=== PATIENT | male | born 1985 ===

== ENCOUNTER 2025-06-26 22:03 | Emergency (ER) | payer OTHER, SELFPAY ==
--- NOTE | ~2025-06-26 | XR_ITS ---
CLINICAL HISTORY: hypoxic 1 view chest x-ray Comparison: None provided Findings: Mild pulmonary vascular congestion. No consolidation, large effusion, or pneumothorax. Heart size is normal. No acute fracture. IMPRESSION: 1. Mild pulmonary vascular congestion. 2. No other acute cardiopulmonary findings. This document has been electronically signed by: Christiano Morgan MD on 06/26/2025 23:33:41
[2025-06-26 22:14] VITALS: BP 105/70; PULSE 98; RESP 14; TEMP 36.8; O2SAT 100; O2SAT 99; BMI 22.5
--- NOTE | 2025-06-26 22:25 | ECG_ITS ---
Test Reason : LETHARGIC Blood Pressure : */* mmHG Vent. Rate : 100 BPM Atrial Rate : 100 BPM P-R Int : 140 ms QRS Dur : 94 ms QT Int : 364 ms P-R-T Axes : 56 47 36 degrees QTcB Int : 469 ms Normal sinus rhythm Possible Left atrial enlargement Minimal voltage criteria for LVH, may be normal variant ( Sokolow-Das ) Borderline ECG No previous ECGs available Referred By: Generic ED Physician Electronically Signed By: MINESH AYALA
--- NOTE | 2025-06-26 22:37 | ED.GENADULT ---
HPI - General Adult General Chief complaint: General Medical Stated complaint: LOW O2 Time Seen by Provider: 06/26/25 22:29 Source: patient and EMS Mode of arrival: EMS Limitations: other ( somnolent ) History of Present Illness ED Provider: Dr. Katie Salas HPI narrative: patient comes to the emergency room via ambulance from [facility]. According to the staff, patient has been lethargic, the staff reports a low O2 sat in the 70s on room air, pinpoint pupils. Patient was put on 4 L nasal cannula his oxygen improved to 100%. According to the patient, he does not taking narcotics. However, patient is very somnolent to have a full conversation, keeps falling asleep. Related Data Allergies Allergy/AdvReac Type Severity Reaction Status Date / Time chlorpromazine (From Allergy Vomiting Verified 06/26/25 22:23 Thorazine) haloperidol (From Haldol) Allergy Vomiting Verified 06/26/25 22:23 Review of Systems Review of Systems: Yes Other ( Too somnolent, keeps falling asleep) [facility] Social History Social History Advance Directives: Yes Advance Directives Information Provided: Yes Advance Directives on File: No Physical Exam ED Exam Exam: Appearance: Alert. no acute distress, awake but falls asleep talking. Eyes: Pupils equal, round and reactive to light. Patient no longer has pinpoint pupils as described per paramedics ENT: Pharynx normal. Neck: Normal inspection. Neck supple. No lymph nodes noted. No crepitus CVS: Normal heart rate and rhythm. Pulses normal. Normal S1 and S2 Respiratory: No respiratory distress. Breath sounds normal. No Wheezing. No rales Abdomen: Soft and nontender. No rigidity. No distention. Skin: Skin warm and dry. Normal skin color. Normal skin turgor. Extremities: No lower extremity edema. No Lacerations. No Rash Neuro: moves all extremities, normal speech, however, patient does fall asleep talking Psych: calm, cooperative , very somnolent Vital Signs: Vital Signs - 24 hr 06/26/25 22:14 06/27/25 00:26 06/27/25 02:31 Temperature 98.2 F Pulse Rate 98 88 86 Respiratory Rate 14 13 16 Blood Pressure 105/70 108/71 96/60 Pulse Oximetry 99 95 95 Oxygen Delivery Method Nasal Cannula Nasal Cannula Room Air Oxygen Flow Rate 2 06/27/25 06:00 Temperature Pulse Rate 82 Respiratory Rate 9 L Blood Pressure 94/57 L Pulse Oximetry 94 Oxygen Delivery Method Room Air Oxygen Flow Rate BMI result Body Mass Index 22.5 Course Course Course Narrative: it is possible the patient may have gotten narcotics versus his psychiatric medications that are making him drowsy. All of patient's labs and imaging pending. Patient arrived on nasal cannula. The cannula was removed, patient now on room air, patient's saturation 98% Medical Decision Making Medical Decision Making [facility] Narrative: My interpretation of EKG: Normal sinus rhythm, heart rate 100, no ST segment depression or elevation, no T-wave inversion, QTC 469 my interpretation of labs: Patient's white blood cell count 11.2, likely reactive leukocytosis, no source or signs of infection, no significant abnormality in patient's chemistry, LFTs AST/ ALT slightly bumped, no abdominal pain. Toxicology negative for EtOH, positive for methadone. Patient takes multiple medications that make him feel sleepy such as clonidine, hydroxyzine, melatonin gabapentin, olanzapine, methadone, diazepam. It is likely that patient is gives a being on high dose of this medications and therefore patient is somnolent. Patient awake, alert, was able to walk to the bathroom a provide a urine sample. Denies any pain, denies SI or HI when patient's sleeps, oxygen saturation drops to 82% when he is on room air. When he wakes up, it does go up to the 90s. It is possible that this is most likely secondary to polypharmacy given to the patient earlier today. he has a large list of medications that are given at bedtime. Per Savanna Joyce, he was only given gabapentin. Unlikely that the patient is so somnolent and dropping his O2 sat just because of gabapentin. patient denies IV drug use. Given the deep O2 desaturations, sometimes when patient is awake, we will rule out a pulmonary embolism. We tried inserting a line. However, patient became aggressive and belligerent. Patient refused to get an IV line. We tried to obtain blood to get a D-dimer. However, patient Refused. It has been noted that when patient sleeps, his oxygen drops. So, we are not allowing the patient to sleep, we keep waking him up by his oxygen has been able to keep up. Oxygen desaturations most likely secondary to polypharmacy while staying awake, patient did not have any oxygen desaturations. Even afterwards, when he went back to sleep, oxygen saturation remained above 95%. Differential Diagnosis Differential Diagnoses: The differential diagnosis associated with the presentation includes ( medication side-effect, polysubstance abuse) Admission/Observation Consideration of admission/observation: Escalation of care including admission/observation considered ( I have personally provided critical care time. Time includes review of lab data, radiology results, discussion with consultants, and monitoring for potential decompensation. Intervention performed as documented.) Lab Data MDM Lab Attestation statement: I reviewed the patient's lab results. 06/26/25 23:04 06/26/25 23:04 Labs: Lab Results 06/26/25 06/27/25 06/27/25 Range/Units 23:04 00:29 23:04 WBC 11.2 H (4.8-10.8) X10*3/uL RBC 4.15 L (4.60-5.80) X10*6/uL Hgb 12.4 L (14.0-18.0) g/dl Hct 40.0 L (42.0-52.0) % MCV 96.4 (80.0-98.0) fL MCH 29.9 (27.0-33.0) pg MCHC 31.0 (31.0-36.0) g/dl RDW 14.6 (11.0-16.0) % Plt Count 353 (160-400) X10*3/uL MPV 10.3 (9.4-12.4) fL Immature Gran % (Auto) 0.2 (0.0-0.4) % Neut % (Auto) 75.0 H (45-73) % Lymph % (Auto) 17.2 L (20-40) % Cottle % (Auto) 7.2 (2-11) % Eos % (Auto) 0.1 (0-4) % Baso % (Auto) 0.3 (0-2) % Lymph # (Auto) 1.9 (1.2-4.9) X10*3/uL Cottle # (Auto) 0.8 (0.1-1.2) X10*3/uL Eos # (Auto) 0.0 (0.0-0.4) X10*3/uL Baso # (Auto) 0.0 (0.0-0.2) X10*3/uL Abs Immat Gran (auto) 0.02 (0.00-0.03) X10*3/uL Absolute Neuts (auto) 8.4 H (2.0-8.3) x10*3/uL Absolute Nucleated RBC 0.000 (0.0-0.012) X10*3/uL Nucleated RBC % (auto) 0.0 (0.0-0.2) /100WBC Sodium 139 (135-145) mmol/L Potassium 5.0 (3.3-5.1) mmol/L Chloride 96 (96-108) mmol/L Carbon Dioxide 35 H (22-29) mmol/L Anion Gap 13 (12-20) BUN 21 H (9-16) mg/dL Creatinine 0.62 (0.5-1.4) mg/dL Estim Creat Clear Calc 136.5 Estimated GFR > 60 Random Glucose 133 H (60-115) mg/dL Calcium 9.1 (8.4-10.2) mg/dL Total Bilirubin 0.1 (0.0-1.0) mg/dL AST 76 H (5-37) U/L ALT 81 H (0-40) U/L Alkaline Phosphatase 73 (39-117) U/L Troponin I High Sens 66.3 H (<3.5-35.0) ng/L Total Protein 8.4 H (6.5-8.0) g/dL Albumin 4.1 (3.5-5.0) g/dL Urine Opiates Screen Not Detected (Not Detect) Ur Buprenorphine Scrn Not Detected (Not Detect) ng/mL Ur Oxycodone Screen Not Detected (Not Detect) ng/mL Urine Methadone Screen Positive H (Not Detect) ng/mL Urine Fentanyl Screen Not Detected (Not Detect) Ur Barbiturates Screen Not Detected (Not Detect) Ur Phencyclidine Scrn Not Detected (Not Detect) Ur Amphetamines Screen Not Detected (Not Detect) U Benzodiazepines Scrn Not Detected (Not Detect) Urine Cocaine Screen Not Detected (Not Detect) U Marijuana (THC) Screen Not Detected (Not Detect) Ethyl Alcohol < 10 mg/dL Independent Interpretation I performed an independent interpretation of an: EKG Critical Care Time Critical Care Time Critical Care Time: Yes Total Critical Care Time: 50 Attestation: I have personally provided critical care time. Time includes review of lab data, radiology results, discussion with consultants, and monitoring for potential decompensation. Intervention performed as documented. Discharge Plan Discharge Clinical Impression: Medication side effects, Somnolence, Polypharmacy Patient Disposition: [facility] Transfer Details: return to [facility] Instructions: Adverse Drug Reaction (ED) Additional Instructions: Toxicology negative for EtOH, positive for methadone. Patient takes multiple medications that make him feel sleepy such as clonidine, hydroxyzine, melatonin gabapentin, olanzapine, methadone, diazepam. It is likely that patient is gives a being on high dose of this medications and therefore patient is somnolent. Please follow-up with your primary care physician tomorrow. If you have any worsening or new symptoms, please return to the emergency room or call 911 Print Language: Unable To Collect
[2025-06-26 23:21] LABS: MANUAL DIFF FLAG NO
[2025-06-26 23:23] LABS: Hematocrit 40.0 % (42.0-52.0); Hemoglobin 12.4 g/dl (14.0-18.0); Imm Gran Abs Auto 0.02 X10*3/uL (0.00-0.03); Imm Gran Pct Auto 0.2 % (0.0-0.4); Lymphocytes Absolute Auto 1.9 X10*3/uL (1.2-4.9); Mean Corpuscular HGB Conc 31.0 g/dl (31.0-36.0); Mean Corpuscular Hemoglobin 29.9 pg (27.0-33.0); Mean Corpuscular Volume 96.4 fL (80.0-98.0); NRBC Abs Auto 0.000 X10*3/uL (0.0-0.012); NRBC Pct Auto 0.0 /100WBC (0.0-0.2); Platelet Count 353 X10*3/uL (160-400); Red Blood Count 4.15 X10*6/uL (4.60-5.80); White Blood Count 11.2 X10*3/uL (4.8-10.8)
[2025-06-26 23:39] LABS: Alanine Aminotransferase 81 U/L (0-40); Albumin Level 4.1 g/dL (3.5-5.0); Alkaline Phosphatase 73 U/L (39-117); Anion Gap 13 (12-20); Aspartate Amino Transferase 76 U/L (5-37); Blood Urea Nitrogen 21 mg/dL (9-16); Calcium 9.1 mg/dL (8.4-10.2); Carbon Dioxide 35 mmol/L (22-29); Chloride 96 mmol/L (96-108); Creatinine Clr Calc Pharmacy 136.5; Estimated Glomerular Filt Rate > 60; Potassium 5.0 mmol/L (3.3-5.1); Sodium 139 mmol/L (135-145); Total Protein 8.4 g/dL (6.5-8.0)
[2025-06-27 00:26] VITALS: BP 108/71; PULSE 88; RESP 13; O2SAT 95
[2025-06-27 01:14] LABS: Cannabinoid Screen Urine Not Detected (Not Detect)
[2025-06-27 02:13] LABS: Troponin-I High Sensitivity 66.3 ng/L (<3.5-35.0)
[2025-06-27 02:31] VITALS: BP 96/60; PULSE 86; RESP 16; O2SAT 95
[2025-06-27 06:00] VITALS: BP 94/57; PULSE 82; RESP 9; O2SAT 94
[2025-06-27 07:16] VITALS: BP 103/64; PULSE 76; RESP 14; O2SAT 94
--- NOTE | 2025-06-27 07:19 | PC.NURSE ---
This RN resumed care of pt at 0700, EMS booked for 0730 to return to [facility]. Pt yelling at this RN from room while with another pt about his methadone and food, this RN noted to pt that he would be returning to [facility] shortly and they would give him his daily medications. Pt remains stable on RA, HR and BP remain stable, he is resting in bed, comfortably, no signs of resp distress. EMS here, hand over given, this RN attempted to call [facility] x2 with no answer.
[2025-06-27 07:21] VITALS: BP 103/64; PULSE 76; RESP 14; TEMP -17.7; TEMP 0; O2SAT 94
== END 2025-06-27 07:17 ==
PROVIDERS: Emergency Provider Emergency Medicine
DX: R40.0 Somnolence (principal); R94.31 Abnormal electrocardiogram [ECG] [EKG]; R53.83 Other fatigue; R09.02 Hypoxemia; R53.1 Weakness; Z51.81 Encounter for therapeutic drug level monitoring; Z79.899 Other long term (current) drug therapy
CPT/HCPCS: 36415; 71045; 80053; 80307; 84484; 85025; 93005; 99285

== ENCOUNTER → 2025-06-26 22:25 | Outpatient (BNV) | payer OTHER, SELFPAY | PROVIDERS: Emergency Provider Emergency Medicine; Visit Provider Internal Medicine | DX: R53.83 Other fatigue (principal) | CPT/HCPCS: 93010 ==

== ENCOUNTER → 2025-06-26 22:33 | Outpatient (BNV) | payer OTHER, SELFPAY | PROVIDERS: Emergency Provider Emergency Medicine; Visit Provider Radiology Diagnostic Radiology | DX: J81.0 Acute pulmonary edema (principal) | CPT/HCPCS: 71045 ==